=== PATIENT | female | born 1950 | race Caucasian/White ===

== ENCOUNTER 2020-10-25 05:00 | Inpatient (IN) | payer OTHER, MEDICARE ==
[2020-10-25] VITALS (11 sets, daily range): BP systolic 54–142; BP diastolic 26–79
[~2020-10-25] VITALS: Ht 160 cm; Wt 70.3 kg
--- NOTE | 2020-10-25 05:05 | NUR ---
STEVE CASTORENA TAKEN TO BED #1
--- NOTE | 2020-10-25 05:08 | NUR ---
70/f STEVE FROM [facility] FOR RAPID HR X1 HOUR. CARDIOVERTED AT 100J. NON VERBAL BASELINE. PT WITH GTUBE IN PLACE AND RODAS CATHETER IN PLACE. RT AT BEDSIDE DURING TRIAGE HOOKING UP PT TO VENTILATOR. 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
[2020-10-25] MEDS ORDERED: ADENOSINE 6 MG/2 ML VIAL IVP ONE (05:10)
[2020-10-25] MEDS ORDERED: NACL 0.9% 1,000 ML IV ONE ×3 (05:10→06:30)
[2020-10-25 05:23] LABS: HEMATOCRIT 41.9 % (36-48); MEAN CORPUSCULAR HEMOGLOBIN 26 pg (27-31); MEAN CORPUSCULAR HGB CONC 31 g/dL (33-37); MEAN CORPUSCULAR VOLUME 82.1 fL (80-94); PLATELET COUNT (AUTO) 477 K/uL (140-450); RED BLOOD CELL COUNT(AUTO) 5.11 MIL/uL (4.20-5.40); RED CELL DISTRIBUTION WIDTH 18.2 % (11.6-13.7)
[2020-10-25] MEDS ORDERED: DILTIAZEM 25 MG/5 ML VIAL IVP ONE ×3 (05:25→05:45)
[2020-10-25] MEDS ORDERED: DILTIAZEM 125 MG in DEXTROSE 5% 100 ML IV ONE (05:25)
--- NOTE | 2020-10-25 05:25 | NUR ---
VERBAL ORDER FOR CARDIZEM 20MG IVP RECEIVED FROM DR. ECHEVARRIA. ORDER CARRIED.
[2020-10-25] MEDS ORDERED: DILTIAZEM 125 MG/25 ML VIAL IV ONE (05:32)
[2020-10-25] MEDS ORDERED: LORazepam 2 MG/ML VIAL IVP ONE (05:45)
--- NOTE | 2020-10-25 05:46 | NUR ---
CARDIZEM DRIP STARTED. PT CONNECTED TO VENT. PT HOOKED TO MONITORS. WILL CONTINEU TO MONITOR.
[2020-10-25] MEDS ORDERED: MELA5SGL GT (05:47)
[2020-10-25] MEDS ORDERED: OMEP20EC11 GT (05:47)
[2020-10-25] MEDS ORDERED: TOP100 GT (05:47)
[2020-10-25] MEDS ORDERED: VALP-22 GT (05:47)
[2020-10-25] MEDS ORDERED: DILT30TA18 GT (05:47)
[2020-10-25] MEDS ORDERED: SCOP1PAT TD (05:47)
[2020-10-25] MEDS ORDERED: LIOT25TA9 GT (05:47)
[2020-10-25] MEDS ORDERED: METO25TA GT (05:47)
[2020-10-25] MEDS ORDERED: ALBU3SOL83 IH (05:47)
[2020-10-25] MEDS ORDERED: RIFA550T GT (05:47)
[2020-10-25] MEDS ORDERED: PRAV20TA2 GT (05:47)
[2020-10-25] MEDS ORDERED: POTA10TE30 GT (05:47)
--- NOTE | 2020-10-25 05:51 | NUR ---
RAD AT BEDSIDE
[2020-10-25 05:54] LABS: ALBUMIN 3.5 g/dL (3.4-5.0); ANION GAP 27.3 (8-16); ASPARTATE AMINOTRANSFERASE 100 U/L (15-37); CARBON DIOXIDE 13.3 mmol/L (21-32); CHLORIDE 104 mmol/L (98-107); CREATININE 1.3 mg/dL (0.6-1.3); GLUCOSE 284 mg/dL (74-106); POTASSIUM 3.6 mmol/L (3.5-5.1); SODIUM SERUM 141 mmol/L (136-145); TOTAL BILIRUBIN 0.5 mg/dL (0.0-1.0); UREA NITROGEN, BLOOD 40 mg/dL (7-18)
[2020-10-25 06:06] LABS: WHITE BLOOD COUNT (AUTO) 31.9 K/uL (4.8-10.8)
--- NOTE | 2020-10-25 06:20 | NUR ---
PT PLACED ON VENT AMBU AT BEDSIDE W/ ALARMS ON AND AUDIBLE. PT HAS PORTEX 7 ON SETTINGS OF PRVC 400 +5 f16 100% WILL ENDORSE TO DAY SHIFT
--- NOTE | 2020-10-25 06:20 | NUR ---
ekg done at bedside. strip reads 95bpm afib. made aware
[2020-10-25 06:28] LABS: LYMPHOCYTES % (MANUAL) 2 % (20-46); MONOCYTES % (MANUAL) 8 % (5-12)
[2020-10-25] MEDS ORDERED: INSULIN REGULAR, HUMAN 100 UNIT/ML VIAL IVP ONE (06:30)
[2020-10-25] MEDS ORDERED: SODIUM BICARBONATE 8.4% PFS 50 MEQ/50 ML SYR IVP ONE ×2 (06:30→06:42)
--- NOTE | 2020-10-25 06:38 | NUR ---
S/W [facility], [facility] TO GIVE CLINICAL UPDATES FOR PATIENT.
[2020-10-25] MEDS ORDERED: cefTRIAXone 1,000 MG VIAL ONE (06:43)
--- NOTE | 2020-10-25 06:43 | NUR ---
VERBAL AUTH RECEIVED FROM [facility]. AUTH NUMBER: [id number]
--- NOTE | 2020-10-25 06:50 | NUR ---
CLINICALS FAXED PER REQUEST
--- NOTE | 2020-10-25 07:17 | NUR ---
ENDORSED TO DIANE BENSON FOR CONTINUITY OF CARE
--- NOTE | 2020-10-25 07:17 | NUR ---
Report received from KELLEY Garcia; care assumed.
--- NOTE | 2020-10-25 07:56 | NUR ---
PATIENT TRANSPORTED TO CT VIA BVM, NO EVENTS OR DESATS DURING TRANSPORT, RETURNED TO ICU 5 AND RETURNED TO PRIOR VENT SETTINGS. Addendum: 10/25/20 at 0758 by Brennen Keenan RT CHARTED ON WRONG PATIENT IN ERROR,
[2020-10-25] MEDS ORDERED: NACL 0.9% 1,000 ML IV SCH ×2 (08:05→09:15)
[2020-10-25] MEDS ORDERED: POTASSIUM CHLORIDE 40 MEQ, LIDOCAINE MPF 1% 25 MG in NACL 0.9% 250 ML IV PRN (08:05)
[2020-10-25] MEDS ORDERED: ACETAMINOPHEN 325 MG TAB PO PRN (08:05)
[2020-10-25] MEDS ORDERED: ONDANSETRON 4 MG/2 ML VIAL IM/IVP PRN (08:05)
[2020-10-25] MEDS ORDERED: ZOLPIDEM 5 MG TAB PO PRN (08:05)
[2020-10-25] MEDS ORDERED: DOCUSATE SODIUM 100 MG GELCAP PO PRN (08:05)
[2020-10-25] MEDS ORDERED: HYDROcodone/APAP 7.5/325 MG 1 TAB PO PRN (08:05)
[2020-10-25] MEDS ORDERED: guaiFENesin DM 200/20 MG-10 ML 10 ML UDC PO PRN (08:05)
[2020-10-25] MEDS ORDERED: ALBUTEROL SULFATE/IPRATROPIU 3 ML SOL IH PRN (08:10)
[2020-10-25] MEDS ORDERED: DEXTROSE 50% 50 ML SYR IVP PRN (08:20)
[2020-10-25] MEDS ORDERED: INSULIN LISPRO SLIDING SCALE 100 UNITS/ML VIAL SUBQ PRN (08:20)
--- NOTE | 2020-10-25 08:52 | NUR ---
PATIENT HAS BEEN SCREENED AND CATEGORIZED HIGH NUTRITION RISK. PATIENT WILL BE SEEN WITHIN 1-2 DAYS OF ADMISSION. 10/25/20-10/26/[address]
--- NOTE | 2020-10-25 08:57 | NUR ---
Patient will be admitted to care of Dr. Valdovinos. Admited to ICU. Will go to room 1. Belongings list completed. Report to KELLEY Retana.
[2020-10-25] MEDS ORDERED: VALPROIC ACID 250 MG/5 ML UDC GT SCH (09:00)
[2020-10-25] MEDS ORDERED: LIOTHYRONINE SODIUM 5 MCG GT SCH (09:00)
[2020-10-25] MEDS ORDERED: PANTOPRAZOLE 40 MG TABEC PO SCH (09:00)
--- NOTE | 2020-10-25 09:09 | NUR ---
ABG ATTEMPTED VIA LEFT AND RIGHT RADIAL, UNABLE TO OBTAIN, WILL ATTEMPT A BRACHIAL AFTER TRANSPORT TO ICU
--- NOTE | 2020-10-25 09:10 | NUR ---
RECEIVED PT FROM ER. PT IS NONVERBAL AT BASELINE, TRACH TO VENT. PT IS AC PRVC FIO2 100%, PEEP 5, VT 400. PT IS IN A FIB ON THE MONITOR. PT HAS ACCESS AT R WRIST 22 G WITH NS RUNNING AT 60 ML/HR AND CARDIZEM AT 10 MG/HR. RODAS CATHETER IS IN PLACE. HOB IS 30 DEG WITH BED IN LOW, LOCKED POSITION.
[2020-10-25] MEDS ORDERED: NOREPINEPHRINE 4 MG in DEXTROSE 5% 250 ML IV PRN (09:15)
[2020-10-25] MEDS ORDERED: DILTIAZEM 125 MG in DEXTROSE 5% 100 ML IV SCH (09:20)
--- NOTE | 2020-10-25 09:25 | NUR ---
DR. CASTRO ROUNDJAMAL ON PT, INFORMED OF EPISODE OF HYPOTENSION, ORDERED 1 L BOLUS AND LEVOPHED IF NEEDED, ALSO ORDERED PICC LINE
--- NOTE | 2020-10-25 09:29 | NUR ---
[facility]SA SWAB WALKED TO LAB
[2020-10-25 09:35] LABS: FREE T4 (FREE THYROXINE) 0.78 ng/dL (0.76-1.46); MAGNESIUM 1.9 mg/dL (1.8-2.4); PHOSPHORUS 4.5 mg/dL (2.5-4.9); THYROID STIMULATING HORMONE 12.08 uIU/mL (0.34-3.74)
--- NOTE | 2020-10-25 09:43 | NUR ---
DAUGHTER BALWINDER CALLED AND WE INFORMED ABOUT PT'S STATUS AND NEED FOR PICC LINE, REQUESTING DR. CASTRO TO CALL HER FIRST BEFORE GIVING CONSENT [phone]
--- NOTE | 2020-10-25 09:46 | NUR ---
LEVOPHED DRIP STARTED AT 0946 DUE TO PT SYSTOLIC BP IN 40S, TITRATING PER ORDER FOR BP MAINTENANCE
[2020-10-25] MEDS ORDERED: PANTOPRAZOLE 40 MG INJ VIAL ONE (10:04)
[2020-10-25 10:16] LABS: CHOL/HDL RATIO 3.5 (1-4.5)
--- NOTE | 2020-10-25 10:17 | NUR ---
MEDICATIONS ADMINISTERED PER ORDER.
[2020-10-25] MEDS ORDERED: PANTOPRAZOLE 40 MG INJ VIAL IVP SCH (10:30)
--- NOTE | 2020-10-25 10:43 | NUR ---
ATTEMPTED TO CALL DAUGHTER BALWINDER FOR ADMISSION INFORMATION BUT RECEIVED BUSY SIGNAL, WILL CALL AGAIN LATER
--- NOTE | 2020-10-25 11:28 | NUR ---
[facility] REFERRAL RECEIVED FOR TUBE FEEDING.
[2020-10-25] MEDS ORDERED: BLOOD GLUCOSE MONITORING 1 DEV DEV FS SCH (11:30)
--- NOTE | 2020-10-25 11:30 | NUR ---
PT WENT INTO BRADYCARDIA, FOUND PULSELESS, CALLED CODE BLUE. SEE CODE BLUE SHEET
--- NOTE | 2020-10-25 11:52 | NUR ---
PT WENT INTO BRADYCARDIA, FOUND PULSELESS, CALLED CODE BLUE. SEE CODE BLUE SHEET
--- NOTE | 2020-10-25 11:58 | NUR ---
PT PRONOUNCED BY DR. CHOWDHURY.
[2020-10-25] MEDS ORDERED: METOPROLOL 25 MG TAB GT SCH (12:00)
[2020-10-25] MEDS ORDERED: PIPERACILLIN/TAZOBACTAM 3.375 GM in DEXTROSE 5% 50 ML IV SCH (12:00)
--- NOTE | 2020-10-25 12:07 | NUR ---
[facility] SPOKE WITH DAVID. DATA COLLECTION SPECIALIST TO CALL BACK AT [employer]ARLIEST CONVENIENCE.
--- NOTE | 2020-10-25 12:14 | NUR ---
CALL MADE TO [facility], SPOKE WITH YAYA Bingham PATIENT INFORMATION PROVIDED, PT NOT A CANDIDATE AND CASE WILL BE CLOSED. REFERENCE NUMBER: [id number].
[2020-10-25 12:27] LABS: APPEARANCE,URINE CLEAR (CLEAR); BILIRUBIN,URINE NEGATIVE (NEGATIVE); COLOR,URINE YELLOW (YELLOW); LEUKOCYTE ESTERASE ,URINE NEGATIVE (NEGATIVE); NITRITE, URINE NEGATIVE (NEGATIVE); PH,URINE 5.5 (5.0-9.0); UGLUCOSE NEGATIVE (NEGATIVE)
[2020-10-25 12:30] LABS: BLOOD, URINE 1+ (NEGATIVE); RBC,URINE 0-5 /HPF (0-5); TRIPLE PHOSPHATE CRYSTAL,UR 0-10 /HPF (None Seen); WBC,URINE 0-5 /HPF (0-5)
--- NOTE | 2020-10-25 12:30 | NUR ---
SPLICING TECHNICIAN SUE SPOKE TO MOVER HELPER, PT IS NOT MOVER HELPER'S CASE AND IS OKAY TO RELEASE BODY.
[2020-10-25 12:51] LABS: BARBITURATE, URINE NEGATIVE ng/ml (NEG <=200); BENZODIAZEPINE, URINE NEGATIVE ng/mL (NEG <=200); CANNABINOID, URINE NEGATIVE ng/mL (NEG <=50); COCAINE, URINE NEGATIVE ng/mL (NEG <=300); PHENCYCLIDINE SCREEN,URINE NEGATIVE ng/mL (NEG <=25)
[2020-10-25 12:53] LABS: OPIATE, URINE POSITIVE ng/mL (NEG <=2000)
--- NOTE | 2020-10-25 12:54 | NUR ---
DAUGHTER BALWINDER AND FAMILY AT BEDSIDE SEEING PT. BALWINDER IS REQUESTING AUTOPSY, NOTIFIED FIELD SUPERVISOR SEED [employer]ODUCTION LIGIA AND INFORMED BALWINDER THAT IT WOULD BE HER RESPONSIBILITY FOR PAYMENT. WILL FOLLOW UP.
[2020-10-25] MEDS ORDERED: ALBUTEROL SULFATE/IPRATROPIU 3 ML SOL IH SCH (13:00)
--- NOTE | 2020-10-25 16:00 | NUR ---
SPOKE TO DAUGHTER BALWINDER, SHE WILL BE CALLING [facility] TO SEE IF THEY WILL ACCEPT THE PT IN THE MEANTIME BEFORE/IF AUTOPSY WILL BE PERFORMED. AWAITING HER CALL BACK AND CONSENT TO RELEASE THE BODY TO HOME.
--- NOTE | 2020-10-25 16:51 | NUR ---
POST MORTEM CARE PROVIDED.
--- NOTE | 2020-10-25 17:13 | NUR ---
STILL AWAITING CALL BACK FROM DAUGHTER IN REGARDS TO RELEASING BODY TO [facility]
[2020-10-25] MEDS ORDERED: VANCOMYCIN PER PHARMACY MC PRN (17:50)
--- NOTE | 2020-10-25 19:22 | NUR ---
PER DAUGHTER BALWINDER SHE HASN'T DECIDED ON HOME AND WILL NOT BE ABLE TILL TOMORROW. ENDORSED TO STERILE SUPERVISOR RN AND OPERATING TABLE ASSEMBLER.
[2020-10-25] MEDS ORDERED: ATORVASTATIN 20 MG TAB PO SCH (21:00)
[2020-10-25] MEDS ORDERED: NON-FORMULARY ITEM (Pravastatin Sodium* (Pravachol*) 20 MG) GT SCH (21:00)
[2020-10-25] MEDS ORDERED: VANCOMYCIN 1,000 MG in DEXTROSE 5% 250 ML IV SCH (21:00)
--- NOTE | 2020-10-25 23:20 | NUR ---
PT WAS PICKED UP AND SUBSTANCE ABUSE PREVENTION COORDINATOR REQUESTING A WRIST BAND. CARRIED OUT. TOE TAGS IN PLACE WITH WRIST BAND. DAUGHTER NOTIFIED AND AWARE THAT PATIENT HAS BEEN TRANSPORTED.
[2020-10-26 10:07] LABS: T4 (THYROXINE) 10.1 ug/dL (4.5-12.0)
== END 2020-10-25 23:20 | DRG 720 ==
LOC: MED 05:00 → MIC 06:51
PROVIDERS: ADMIT Family Medicine; ATTEND Family Medicine
PROC: 5A12012 Performance of Cardiac Output, Single, Manual (ICD-10-PCS; principal; 2020-10-25)
PROC: 5A1935Z Respiratory Ventilation, Less than 24 Consecutive Hours (ICD-10-PCS; 2020-10-25)
DX: A41.9 Sepsis, unspecified organism (principal); I21.A1 Myocardial infarction type 2; I46.9 Cardiac arrest, cause unspecified; J69.0 Pneumonitis due to inhalation of food and vomit; R65.21 Severe sepsis with septic shock; J96.21 Acute and chronic respiratory failure with hypoxia; I47.1 Supraventricular tachycardia; G40.909 Epilepsy, unspecified, not intractable, without status epilepticus; I48.0 Paroxysmal atrial fibrillation; Z93.0 Tracheostomy status; E87.2 Acidosis; E11.9 Type 2 diabetes mellitus without complications; I10 Essential (primary) hypertension; E03.9 Hypothyroidism, unspecified; Z20.822 Contact with and (suspected) exposure to COVID-19; E78.5 Hyperlipidemia, unspecified; J96.22 Acute and chronic respiratory failure with hypercapnia; K21.9 Gastro-esophageal reflux disease without esophagitis; Z93.1 Gastrostomy status; Z79.899 Other long term (current) drug therapy
CPT/HCPCS: 36415; 71045; 76700; 80053; 80305; 81001; 82009; 82150; 83036; 83605; 83690; 83735; 83880; 84100; 84436; 84439; 84443; 84479; 84484; 85025; 85610; 85730; 87040; 87081; 87086; 92950; 93005; 94002; 96361; 96365; 96375; 99291; 99292; C9113; J0153; J0696; J1644; J1815; J2060; J2543; J3370; J3490; J7060